=== PATIENT | female | born 1985 | race Caucasian/White ===

== ENCOUNTER 2017-09-16 16:48 | Emergency (ER) | payer MEDICAID, OTHER ==
[2017-09-16] VITALS (14 sets, daily range): BP systolic 121–132; BP diastolic 67–92; PULSE 94–128
[2017-09-16] MEDS ORDERED: PREN29TA PO (17:53)
--- NOTE | 2017-09-16 18:16 | PD ---
HPI Chief Complaint elevated BP, leg swelling, LEE, nausea Date Seen: Sep 16, 2017 Time Seen: 17:20 (John Devine MD R1) Travel History International Travel<30 Days: No Contact w/Intl Traveler<30Days: No Known Affected Area: No (John Devine MD) History of Present Illness HPI Ms Fong is a 32YO at 38/1 weeks followed by Criss Yeboah who presents from [place] with complaints of elevated BP, LEE, leg swelling and nausea. There has been no LOF, VB or CTX. BP on admit is 139/90 and pt states she has not been diagnosed with HTN in the past or during any . Pt has Hx of migraines which she used to take propranolol before but has not done so during . She has had a LEE for the past two days off and on with some relief from tylenol. There is no visual disturbance. She does report proteinuria during this . She has had nausea over the past two days as well that has waxed and waned a little but no vomiting. She has had loose stools the past two days. Denies CP, abdominal pain, but does have some SOB on exertion. There is painful bilateral leg swelling but no erythema or concern for DVT pain. Pt is feeling stress due to her being in the [employer] stationed in [place]. Pt is Rh negative and received a Rhogam injection at 28 weeks of labor. She takes a vitamin and is allergic to PCN. Her two previous pregnancies were delivered at or near term (2nd at 38 weeks) via without complication. She was not GBS positive in previous pregnancies and got tested Tuesday but does not know the results yet. Weeks Gestation: 38 Para: 2 : 3 (John Devine MD) History Past Medical History Narrative Medical Migraines (John Devine MD) Obstetric History Obstetric History 2x first at term, 2nd at 38 weeks (John Devine MD) Past Surgical History Surgical History: No Previous Surgery (John Devine MD) Family History Narrative Family History Father - HTN Mother - HTN and thyroid (John Devine MD) Social History Alcohol Use: No Tobacco Use: No Substance Abuse: No (John Devine MD) Allergies-Medications (Allergen,Severity, Reaction): Coded Allergies: Penicillins (Verified Allergy, Severe, Hives, 09/16/17) Pt gets hives and has trouble breathing Home Meds Active Scripts Vit-Iron Carbonyl ( Plus Iron 29-1 mg) 29 Mg Iron-1 Mg Tab, 1 TAB PO DAILY for Nutritional Supplement, #30 TAB 0 Refills Prov:John Devine MD R1 09/16/17 Review of Systems General / Constitutional: No: Fever, Chills Eyes: No: Visual changes HENT: Headaches Cardiovascular: No: Chest Pain or Discomfort, Palpitations Respiratory: Short of Breath (exertional) Gastrointestinal: Nausea, No: Vomiting, Diarrhea, Abdominal Pain, Constipation Genitourinary: Discharge, No: Dysuria, Hematuria, Vaginal Bleeding Musculoskeletal: Edema (bilateral legs) Skin: No Rash Neurologic: No: Weakness, Dizziness Psychiatric: Anxiety (John Devine MD R1) Physical Exam T - 98.6 / HR 113 / BP 139/90 / RR 10 Narrative GENERAL: Well-nourished, well-developed patient lying in bed in NAD. SKIN: Warm and dry. No rashes, lesions or ecchymoses. HEAD: Normocephalic and atraumatic. EYES: No scleral icterus. No injection or drainage. EOMI. ENT: No nasal drainage noted. Mucous membranes pink. Airway patent. NECK: Supple, trachea midline. No JVD. CARDIOVASCULAR: Regular rate and rhythm without murmurs, gallops, or rubs. RESPIRATORY: Breath sounds equal bilaterally. No accessory muscle use. ABDOMEN/GI: Abdomen soft, non-tender, bowel sounds present, no rebound, no guarding Gravid to 38 weeks size GENITOURINARY: External Genitalia: intact and normal in appearance Cervix: open Dilatation: 2-3 Effacement: 30 Station: -3 Presentation: vtx Membranes: intact Uterine Contractions: absent FHT's: Category: 1 Baseline: 130 Reactive: yes Variability: moderate Decels: absent EXTREMITIES: No cyanosis or edema. BACK: Nontender without obvious deformity. No CVA tenderness. NEUROLOGICAL: Awake and alert. Motor and sensory grossly within normal limits. Five out of 5 muscle strength in all muscle groups. Normal speech. (John Devine MD R1) Data Data Vital Signs Reviewed: Yes Orders Orders Vital Signs (Adult) .ON ADMISSION (09/16/17 17:37) ^ Labor Status (09/16/17 17:37) Urinalysis - C+S If Indicated (09/16/17 17:37) ^ Non Stress Test (09/16/17 17:37) ^ Hydration (09/16/17 17:37) Cbc No Diff, Includes Plts (09/16/17 17:37) Comprehensive Metabolic Panel (09/16/17 17:37) Labs GBS test on Tuesday, results unknown (John Devine MD R1) MDM Narrative Course / MDM 32YO at 38/1 weeks followed by Criss Yeboah presents with borderline gestational HTN. Cervix 2-3//-3. FHT w/BL 130, reactive, moderate and absent decels 1. IUP -Monitor and toco -NST -UA -CBC -CMP -Encouraged hydration -Bed rest -F/u with Criss Yeboah Seen and dw Dr Brandon (John Devine MD R1) Diagnosis Diagnosis: Primary Impression: Hypertension affecting in third trimester Disposition: DISCHARGE HOME Condition: Stable Scripts Fosfomycin Packet (Monurol Packet) 3 Gm Powderpack 3 GM PO ONCE for Infection for 1 Day, #1 GM Prov: Danny Brandon II, MD 09/16/17 Vit-Iron Carbonyl ( Plus Iron 29-1 mg) 29 Mg Iron-1 Mg Tab 1 TAB PO DAILY for Nutritional Supplement, #30 TAB 0 Refills Prov: John Devine MD R1 09/16/17 John Devine MD R1 Sep 16, 2017 18:16 Danny Brandon II, MD Sep 16, 2017 19:32
[2017-09-16 19:02] LABS: HEMATOCRIT 33.9 % (35.0-46.0); HEMOGLOBIN 11.4 GM/DL (11.6-15.3); MEAN CORPUSCULAR HGB CONC 33.7 % (32.0-36.0); MEAN PLATELET VOLUME 8.4 FL (7.0-11.0); PLATELET COUNT 226 TH/MM3 (150-450); RED BLOOD COUNT 4.23 MIL/MM3 (4.00-5.30); RED CELL DISTRIBUTION WIDTH 15.1 % (11.6-17.2); WHITE BLOOD COUNT 10.8 TH/MM3 (4.0-11.0)
[2017-09-16 19:03] LABS: BACTERIA, URINE MOD /hpf; BILIRUBIN, URINE NEG (NEG); BLOOD, URINE NEG (NEG); GLUCOSE,URINE NEG (NEG); KETONE, URINE NEG (NEG); MUCUS URINE MANY /lpf (OCC); NITRITE,URINE NEG (NEG); PH, URINE 6.5 (5.0-8.5); SQUAMOUS EPITHELIAL CELL URINE 13 /hpf (0-5); URINE COLOR YELLOW (YELLW/STRAW); URINE LEUKOCYTE ESTERASE SMALL (NEG)
[2017-09-16 19:17] LABS: ALBUMIN 2.6 GM/DL (3.4-5.0); AST (GOT) 21 U/L (15-37); BICARBONATE 23.3 MEQ/L (21.0-32.0); BLOOD UREA NITROGEN 7 MG/DL (7-18); CALCIUM 9.2 MG/DL (8.5-10.1); CHLORIDE 105 MEQ/L (98-107); CREATININE 0.54 MG/DL (0.50-1.00); GLOMERULAR FILTRATION RATE 130 ML/MIN (>89); GLUCOSE,RANDOM 70 MG/DL (74-106); SODIUM (NA) 138 MEQ/L (136-145)
[2017-09-16 19:18] LABS: ALT (GPT) 18 U/L (10-53)
[2017-09-16 19:21] LABS: ALKALINE PHOSPHATASE 173 U/L (45-117); TOTAL BILIRUBIN ADULT 0.3 MG/DL (0.2-1.0)
[2017-09-16] MEDS ORDERED: MONUPAK PO (19:35)
== END 2017-09-16 20:03 | disposition home or self-care (01) ==
LOC: HOBED 16:48
DX: O16.3 Unspecified maternal hypertension, third trimester (principal); Z3A.38 38 weeks gestation of pregnancy; M79.89 Other specified soft tissue disorders; R82.90 Unspecified abnormal findings in urine; Z88.0 Allergy status to penicillin
CPT/HCPCS: 59025; 80053; 81001; 85027; 87086

== ENCOUNTER 2017-09-18 18:59 | Emergency (ER) | payer MEDICAID ==
[~2017-09-18] VITALS: Ht 175.3 cm; Wt 108.9 kg
[~2017-09-18 18:59] MED LIST: MONUPAK PO; PREN29TA PO
--- NOTE | 2017-09-18 20:11 | PD ---
HPI Chief Complaint decreased fm, ctxs Date Seen: Sep 18, 2017 Time Seen: 20:05 Travel History International Travel<30 Days: No Contact w/Intl Traveler<30Days: No Known Affected Area: No History of Present Illness HPI pt. is a 32 y/o @ 38 3/7 weeks present w/ c/o decreased fm and ctxs. pt. states baby not move for 12 hours. also w/ ctxs increase in intensity and freq thruout day. no vb/lof. Weeks Gestation: 38 Para: 1 : 2 History Past Medical History Medical History: Denies Significant Hx Obstetric History Obstetric History , x 1 Past Surgical History Surgical History: No Previous Surgery Family History Family History: Negative Social History Alcohol Use: No Tobacco Use: No Substance Abuse: No Allergies-Medications (Allergen,Severity, Reaction): Coded Allergies: Penicillins (Verified Allergy, Severe, Hives, 09/18/17) Pt gets hives and has trouble breathing Home Meds Active Scripts Fosfomycin Packet (Monurol Packet) 3 Gm Powderpack, 3 GM PO ONCE for Infection for 1 Day, #1 GM Prov:Danny Brandon II, MD 09/16/17 Review of Systems Except as stated in HPI: all other systems reviewed are Neg Physical Exam Narrative GENERAL: Well-nourished, well-developed patient. SKIN: Warm and dry. HEAD: Normocephalic and atraumatic. EYES: No scleral icterus. No injection or drainage. ENT: No nasal drainage noted. Mucous membranes pink. Airway patent. NECK: Supple, trachea midline. No JVD. CARDIOVASCULAR: Regular rate and rhythm without murmurs, gallops, or rubs. RESPIRATORY: Breath sounds equal bilaterally. No accessory muscle use. ABDOMEN/GI: Abdomen soft, non-tender, bowel sounds present, no rebound, no guarding Gravid GENITOURINARY: External Genitalia: intact and normal in appearance Dilatation: 2-3 Effacement: 30 Station: high Membranes: intact, - amniosure Uterine Contractions: irreg FHT's: Category: 1 Reactive: + Variability:mod EXTREMITIES: No cyanosis or edema. BACK: Nontender without obvious deformity. No CVA tenderness. NEUROLOGICAL: Awake and alert. Motor and sensory grossly within normal limits. Five out of 5 muscle strength in all muscle groups. Normal speech. Data Data Vital Signs Reviewed: Yes Orders Orders Manager Contact Clear For Discharge (09/18/17 ) [facility] Medical Record Reviewed: Yes Plan pt. to be d/c to home. pt. now feeling movement and fht reassuring. pt. not in active labor. condition d/w pt. all ? answered. f/u as sched. Diagnosis Diagnosis: Primary Impression: Decreased movement Additional Impressions: 38 weeks gestation of False labor after 37 completed weeks of gestation Disposition: 01 DISCHARGE HOME Condition: Stable Patient Instructions: General Instructions, Movement (ED), Urinary Tract Infection in (ED) Additional Instructions: RETURN TO ER FOR REGULAR CONTRACTIONS, BLEEDING, LEAKING OF FLUIDS, OR DECREASED MOVEMENT. FILL MEDICATION SCRIPT FOLLOW UP WITH RISK CONTROL PRODUCT LIABILITY DIRECTOR TOMORROW SCHEDULED. Departure Forms: Tests/Procedures Asim Malave Jr., MD Sep 18, 2017 20:11
== END 2017-09-18 20:22 | disposition home or self-care (01) ==
LOC: HOBED 18:59
DX: O36.8130 Decreased fetal movements, third trimester, not applicable or unspecified (principal); Z3A.38 38 weeks gestation of pregnancy; Z88.0 Allergy status to penicillin
CPT/HCPCS: 59025; 84112